=== PATIENT | female | born 2000 | race Caucasian/White ===

== ENCOUNTER 2019-06-01 16:29 | Emergency (ER) | payer OTHER ==
[2019-06-01 19:31] LABS: Urine Blood NEGATIVE (NEG); Urine Glucose NEGATIVE (NEG); Urine Protein NEGATIVE (NEG)
--- NOTE | 2019-06-01 19:56 | RAD REPORT ---
EXAM DESCRIPTION: CT - Stone Protocol - 06/01/2019 7:06 pm CLINICAL HISTORY: Abdominal pain. COMPARISON: None. TECHNIQUE: Computed axial tomography of the abdomen pelvis was obtained without oral or IV contrast. Lack of IV and oral contrast limits evaluation of solid organs, bowel, and vessels. Coronal reformat hung images were obtained and reviewed. All CT scans are performed using dose optimization technique as appropriate and may include automated exposure control or mA/KV adjustment according to patient size. FINDINGS: A renal calculus is not seen. An ureteral calculus is not noted. A bladder calculus is not present. The liver, spleen, pancreas and adrenals appear grossly normal There is no evidence of diverticulitis. The appendix appears normal Postsurgical changes involve the spine The appendix is borderline enlarged. IMPRESSION: Negative for a genitourinary calculus Borderline enlargement of the appendix. I suspect this is not significant. However if the patient robertson s have symptoms to suggest appendicitis then a CT scan with oral contrast and opacification of the te rminal ileum/cecum would be recommended
--- NOTE | 2019-06-01 21:18 | EDPHYS ---
Physician Documentation [facility] Name: Gabby Pérez Age: 18 yrs Sex: Female : 2000 Arrival Date: 06/01/2019 Time: 16:35 Bed Treatment Private MD: ED Physician Kang Telles HPI: 06/02 00:49 This 18 yrs old Female presents to ER via Ambulatory with complaints of Back kb Pain. 00:51 Pt reports she noticed swelling to tailbone area 4 days ago. Denies pain. Onset: The kb symptoms/episode began/occurred 4 day(s) ago. Severity of symptoms: At their worst the symptoms were mild moderate in the emergency department the symptoms are unchanged. The patient has not experienced similar symptoms in the past. The patient has not recently seen a physician. 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 - Social history:: Smoking status: Patient/guardian denies using tobacco. - Ebola Screening: : No symptoms or risks identified at this time. ROS: 06/02 00:49 Constitutional: Negative for fever, chills, and weight loss, ENT: Negative for injury, kb pain, and discharge, Neck: Negative for injury, pain, and swelling, Cardiovascular: Negative for chest pain, palpitations, and edema, Respiratory: Negative for shortness of breath, cough, wheezing, and pleuritic chest pain, Abdomen/GI: Negative for abdominal pain, nausea, vomiting, diarrhea, and constipation, : Negative for injury, bleeding, discharge, and swelling, MS/Extremity: Negative for injury and deformity, Skin: Negative for injury, rash, and discoloration, Neuro: Negative for headache, weakness, numbness, tingling, and seizure. Back: Positive for of the lumbar area, swelling. Exam: 00:49 Constitutional: This is a well developed, well nourished patient who is awake, alert, kb and in no acute distress. Head/Face: Normocephalic, atraumatic. Chest/axilla: Normal chest wall appearance and motion. Nontender with no deformity. No lesions are appreciated. Cardiovascular: Regular rate and rhythm with a normal S1 and S2. No gallops, murmurs, or rubs. Normal PMI, no JVD. No pulse deficits. Respiratory: Lungs have equal breath sounds bilaterally, clear to auscultation and percussion. No rales, rhonchi or wheezes noted. No increased work of breathing, no retractions or nasal flaring. Abdomen/GI: Soft, non-tender, with normal bowel sounds. No distension or tympany. No guarding or rebound. No evidence of tenderness throughout. Skin: Warm, dry with normal turgor. Normal color with no rashes, no lesions, and no evidence of cellulitis. MS/ Extremity: Pulses equal, no cyanosis. Neurovascular intact. Full, normal range of motion. Neuro: Awake and alert, GCS 15, oriented to person, place, time, and situation. Cranial nerves II-XII grossly intact. Motor strength 5/5 in all extremities. Sensory grossly intact. Cerebellar exam normal. Normal gait. 00:49 Back: pain, is absent, edema to coccyx. Vital Signs: 06/01 16:44 BP 118 / 74; Pulse 77; Resp 16; Temp 98.6; Pulse Ox 100% on R/A; Weight 54.43 kg; ss Height 5 ft. 2 in. (157.48 cm); Pain 0/10; 16:44 Body Mass Index 21.95 (54.43 kg, 157.48 cm) ss MDM: 18:34 Patient medically screened. kb 20:37 Data reviewed: vital signs, nurses notes. Data interpreted: Pulse oximetry: on room air kb is 100 %. Interpretation: normal. Counseling: I had a detailed discussion with the patient and/or guardian regarding: the historical points, exam findings, and any diagnostic results supporting the discharge/admit diagnosis, radiology results, the need for outpatient follow up, a family practitioner, to return to the emergency department if symptoms worsen or persist or if there are any questions or concerns that arise at home. 06/02 00:49 ED course: Pt has no abd pain, tenderness or complaints. kb 06/01 18:40 Order name: Urine Dipstick--Ancillary (enter results); Complete Time: 19:33 bd 06/01 18:40 Order name: Urine --Ancillary (enter results); Complete Time: 19:33 bd 06/01 18:40 Order name: Urine Dipstick-Ancillary (obtain specimen); Complete Time: 18:54 jl7 06/01 18:40 Order name: CT Stone Protocol; Complete Time: 20:00 jl7 Administered Medications: No medications were administered Disposition: 07:53 Co-signature as Attending Physician, Kang Telles MD I agree with the assessment and wa plan of care. Disposition: 06/01/19 21:17 Discharged to Home. Impression: localized swelling to coccyx area. - Condition is Stable. - Discharge Instructions: Edema, [id number]. - Medication Reconciliation Form, Thank You Letter, Antibiotic Education, Prescription Opioid Use form. - Follow up: Emergency Department; When: As needed; Reason: Worsening of condition. Follow up: Private Physician; When: 2 - 3 days; Reason: Recheck today's complaints, Continuance of care, Re-evaluation by your physician. Signatures: Dispatcher [employer] EDDarcie Hartley, PATRICIA-C METALWORKING SPECIALIST-CkEmiliana Osborne RN RN aj1 Marisol Fields RN RN Antolin Alvarez RN RN jl7 Kang Telles MD MD wa Corrections: (The following items were deleted from the chart) 06/01 21:26 21:17 06/01/2019 21:17 Discharged to Home. Impression: localized swelling to coccyx aj1 area. Condition is Stable. Forms are Medication Reconciliation Form, Thank You Letter, Antibiotic Education, Prescription Opioid Use. Follow up: Emergency Department; When: As needed; Reason: Worsening of condition. Follow up: Private Physician; When: 2 - 3 days; Reason: Recheck today's complaints, Continuance of care, Re-evaluation by your physician. kb
--- NOTE | 2019-06-01 21:18 | ER ---
Nurse's Notes [facility] Name: Gabby Pérez Age: 18 yrs Sex: Female : 2000 Arrival Date: 06/01/2019 Time: 16:35 Bed Treatment Private MD: Diagnosis: localized swelling to coccyx area Presentation: 06/01 16:42 Presenting complaint: Low back pain after running 4 days ago. Transition of care: hb patient was not received from another setting of care. Onset of symptoms was May 28, 2019. Risk Assessment: Do you want to hurt yourself or someone else? Patient reports no desire to harm self or others. Initial Sepsis Screen: Does the patient meet any 2 criteria? No. Patient's initial sepsis screen is negative. Does the patient have a suspected source of infection? No. Patient's initial sepsis screen is negative. Care prior to arrival: None. 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 - Social history:: Smoking status: Patient/guardian denies using tobacco. - Ebola Screening: : No symptoms or risks identified at this time. Screenin:30 Abuse screen: Denies threats or abuse. Denies injuries from another. Nutritional aj1 screening: No deficits noted. Tuberculosis screening: No symptoms or risk factors identified. 21:25 Fall Risk None identified. aj1 Assessment: 18:30 General: Appears in no apparent distress. comfortable, Behavior is calm, cooperative, aj1 appropriate for age. Pain: Complains of pain in low back area Pain currently is 3 out of 10 on a pain scale. Neuro: Level of Consciousness is awake, alert, obeys commands, Oriented to person, place, time, situation, Gait is steady. Cardiovascular: Patient's skin is warm and dry. Respiratory: Airway is patent Respiratory effort is even, unlabored, Respiratory pattern is regular, symmetrical. GI: No signs and/or symptoms were reported involving the gastrointestinal system. : Denies burning with urination, urinary frequency. EENT: No signs and/or symptoms were reported regarding the EENT system. Derm: No signs and/or symptoms reported regarding the dermatologic system. Skin is pink, warm \T\ dry. normal. Musculoskeletal: Circulation, motion, and sensation intact. 19:49 Reassessment: Patient appears in no apparent distress at this time. No changes from aj1 previously documented assessment. Patient and/or family updated on plan of care and expected duration. Pain level reassessed. Patient is alert, oriented x 3, equal unlabored respirations, skin warm/dry/pink. 20:30 Reassessment: Patient appears in no apparent distress at this time. No changes from aj1 previously documented assessment. Patient and/or family updated on plan of care and expected duration. Pain level reassessed. Patient is alert, oriented x 3, equal unlabored respirations, skin warm/dry/pink. Vital Signs: 16:44 BP 118 / 74; Pulse 77; Resp 16; Temp 98.6; Pulse Ox 100% on R/A; Weight 54.43 kg; ss Height 5 ft. 2 in. (157.48 cm); Pain 0/10; 16:44 Body Mass Index 21.95 (54.43 kg, 157.48 cm) ED Course: 16:35 Patient arrived in ED. mr 16:43 Triage completed. hb 16:44 Arm band placed on. hb 18:25 Emiliana Hidalgo, RN is Primary Nurse. aj1 18:30 Patient has correct armband on for positive identification. aj1 18:30 No provider procedures requiring assistance completed. aj1 18:31 D[facility] Gill [facility]-C [facility]. kb 18:31 Kang Telles MD is Attending Physician. kb 19:07 CT Stone Protocol In Process Unspecified. EDMS 21:25 Patient did not have IV access during this emergency room visit. aj1 Administered Medications: No medications were administered Outcome: 21:17 Discharge ordered by . kb 21:26 Discharged to home ambulatory. aj1 21:26 Condition: good 21:26 Discharge instructions given to no one, patient left prior to signing discharge paperwork 21:26 Patient left the ED. aj1 Signatures: Dispatcher [employer] EDMT Darcie Gill FNP-C MATHEMATICS INSTRUCTOR-Emiliana Ferrera, RN RN aj1 Cecy Moralez mr Ciara Tam RN RN ss Marisol Fields RN RN hb Corrections: (The following items were deleted from the chart) 17:31 16:44 BP 118 / 74; Pulse 16bpm; Resp 77bpm; Pulse Ox 100% RA; Temp 98.6F; 54.43 kg; ss Height 5 ft. 2 in.; BMI: 21.9; Pain 0/10; hb
== END 2019-06-01 21:26 | disposition home or self-care (01) ==
LOC: ER 16:29
DX: R22.9 Localized swelling, mass and lump, unspecified (principal)
CPT/HCPCS: 74176; 76377; 81003; 81025; 99283

== ENCOUNTER 2019-10-29 13:03 | Emergency (ER) | payer OTHER, SELFPAY ==
--- NOTE | 2019-10-29 13:43 | ER ---
Nurse's Notes [facility] Name: Gabby Pérez Age: 19 yrs Sex: Female : 2000 Arrival Date: 10/29/2019 Time: 13:06 Bed 15 Private MD: Diagnosis: Low back pain Presentation: 10/29 13:06 Presenting complaint: Patient states: "There's a bump on my back and it makes me not be sv able to walk." c/o discoloration. Transition of care: patient was not received from another setting of care. Onset of symptoms was October 29, 2019. Risk Assessment: Do you want to hurt yourself or someone else? Patient reports no desire to harm self or others. Care prior to arrival: None. 13:06 Method Of Arrival: Ambulatory sv 13:06 Acuity: JENNIFER 3 sv 17:32 Initial Sepsis Screen: Does the patient meet any 2 criteria? No. Patient's initial sepsis screen is negative. Does the patient have a suspected source of infection? No. Patient's initial sepsis screen is negative. Triage Assessment: 13:20 General: Appears in no apparent distress. comfortable, Behavior is calm, cooperative, ch appropriate for age. 13:20 Musculoskeletal: Circulation, motion, and sensation intact. ch Historical: - Allergies: 13:08 No Known Allergies; sv - PMHx: 13:08 None; sv - PSHx: 13:08 Back; Spinal fusion; sv - Immunization history:: Adult Immunizations up to date. - Social history:: Smoking status: Patient/guardian denies using tobacco. Screenin:30 Abuse screen: Denies threats or abuse. Denies injuries from another. Nutritional screening: No deficits noted. Tuberculosis screening: No symptoms or risk factors identified. Fall Risk None identified. Assessment: 13:30 Reassessment: Patient appears in no apparent distress at this time. Patient and/or ch family updated on plan of care and expected duration. Pain level reassessed. Patient is alert, oriented x 3, equal unlabored respirations, skin warm/dry/pink. General: Appears in no apparent distress. comfortable. Pain:. Neuro: Level of Consciousness is awake, alert, obeys commands, Oriented to person, place, time, situation. Cardiovascular: No deficits noted. Respiratory: No deficits noted. GI: No signs and/or symptoms were reported involving the gastrointestinal system. : No signs and/or symptoms were reported regarding the genitourinary system. Derm: Skin is pink, warm \\T\\ dry. 14:07 Reassessment: Patient appears in no apparent distress at this time. Patient and/or ch family updated on plan of care and expected duration. Pain level reassessed. Patient is alert, oriented x 3, equal unlabored respirations, skin warm/dry/pink. Patient states feeling better. Patient states symptoms have improved. Vital Signs: 13:08 BP 128 / 72; Pulse 88; Resp 16; Temp 98.1; Pulse Ox 100% ; Weight 56.7 kg; Height 5 ft. sv 2 in. (157.48 cm); Pain 6/10; 14:07 BP 115 / 67; Pulse 74; Resp 16; Temp 98.1; Pulse Ox 99% on R/A; Pain 3/10; ch 13:08 Body Mass Index 22.86 (56.70 kg, 157.48 cm) sv ED Course: 13:06 Patient arrived in ED. as 13:07 Triage completed. 13:11 Hong Caal PA is PHCP. [facility] 13:11 Harshad Tran MD is Attending Physician. [facility] 13:20 Arm band placed on left wrist. Patient placed in an exam room, on a stretcher, on pulse oximetry. 13:29 Val Burch, PHILOMENA is Primary Nurse. 13:30 No apparent distress. Resting quietly. 13:30 Patient has correct armband on for positive identification. Bed in low position. Call light in reach. 13:30 No provider procedures requiring assistance completed. 13:40 Patient did not have IV access during this emergency room visit. 13:42 Louie Wharton MD is Referral Physician. [facility] 13:43 El Horne MD is Referral Physician. [facility] 13:43 Toño Pichardo MD is Referral Physician. [facility] Administered Medications: No medications were administered Outcome: 13:43 Discharge ordered by . [facility] 14:08 Discharged to home ambulatory, with family. 14:08 Condition: stable 14:08 Discharge instructions given to patient, family, Instructed on discharge instructions, follow up and referral plans. medication usage, Demonstrated understanding of instructions, follow-up care, medications. 14:09 Patient left the ED. Signatures: Val Burch RN RN Elmira Ardon RN RN sv Hong Caal PA PA jmm Martinez, Amelia as Corrections: (The following items were deleted from the chart) 13:09 13:08 Pulse 88bpm; Resp 16bpm; Pulse Ox 100%; Temp 98.1F; 56.7 kg; Height 5 ft. 2 in.; sv BMI: 22.8; Pain 6/10; sv 14:09 13:45 Inserted saline lock: 20 gauge in right antecubital area, using aseptic ch technique. Blood collected. 14: 14:08 IV discontinued, intact, bleeding controlled, No redness/swelling at site. Pressure dressing applied, ch
--- NOTE | 2019-10-29 13:43 | EDPHYS ---
Physician Documentation [facility] Name: Gabby Pérez Age: 19 yrs Sex: Female : 2000 Arrival Date: 10/29/2019 Time: 13:06 Bed 15 Private MD: ED Physician Harshad Tran HPI: 10/29 13:19 This 19 yrs old Female presents to ER via Ambulatory with complaints of Back jmm Pain. 13:19 The patient presents with pain that is chronic. Onset: The symptoms/episode jmm began/occurred gradually, 4 month(s) ago. The pain does not radiate. Associated signs and symptoms: Pertinent negatives: dysuria, fever, hematuria, incontinence, numbness, urinary retention, weakness. Modifying factors: The patient symptoms are alleviated by nothing, the patient symptoms are aggravated by any movement. 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 Patient had developed swelling to her lower back and was evaluated in the ED with a negative CT of the spine. Patient states pain had resolved and would given her pain intermittently throughout the past 4 months. Patient states pain has intensified over the past 2 days. Patient states she developed hip pain last night. Denies fever, chills, weakness, bowel or bladder problems. Patient has remote history of spinal surgery. . Historical: - Allergies: 13:08 No Known Allergies; sv - PMHx: 13:08 None; sv - PSHx: 13:08 Back; Spinal fusion; sv - Immunization history:: Adult Immunizations up to date. - Social history:: Smoking status: Patient/guardian denies using tobacco. ROS: 13:19 Constitutional: Negative for fever, chills, and weight loss, Cardiovascular: Negative jmm for chest pain, palpitations, and edema, Respiratory: Negative for shortness of breath, cough, wheezing, and pleuritic chest pain. 13:19 Back: Positive for pain with movement. 13:19 All other systems are negative. Exam: 13:19 Constitutional: This is a well developed, well nourished patient who is awake, alert, jmm and in no acute distress. Head/Face: atraumatic. Eyes: EOMI, no conjunctival erythema appreciated ENT: Moist Mucus Membranes Neck: Trachea midline, Supple Chest/axilla: Normal chest wall appearance and motion. Cardiovascular: Regular rate and rhythm. No edema appreciated Respiratory: Normal respirations, no respiratory distress appreciated Abdomen/GI: Non distended, soft 13:19 Skin: General appearance color normal 13:19 Back: no mildline tenderness is appreciated, no erythema or mass felt, mild right lower lumbar/sacral pain. FROM appreciated. Extensor hallucis longus intact. 13:19 Musculoskeletal/extremity: ROM: intact in all extremities. 13:19 Neuro: Orientation: is normal, Mentation: is normal, Memory: is normal. 13:19 Psych: Behavior/mood is pleasant, cooperative. Vital Signs: 13:08 BP 128 / 72; Pulse 88; Resp 16; Temp 98.1; Pulse Ox 100% ; Weight 56.7 kg; Height 5 ft. sv 2 in. (157.48 cm); Pain 6/10; 14:07 BP 115 / 67; Pulse 74; Resp 16; Temp 98.1; Pulse Ox 99% on R/A; Pain 3/10; ch 13:08 Body Mass Index 22.86 (56.70 kg, 157.48 cm) sv MDM: 13:19 Patient medically screened. [facility] 13:42 Data reviewed: vital signs, nurses notes. Counseling: I had a detailed discussion with juice the patient and/or guardian regarding: the historical points, exam findings, and any diagnostic results supporting the discharge/admit diagnosis, the need for outpatient follow up, to return to the emergency department if symptoms worsen or persist or if there are any questions or concerns that arise at home. Administered Medications: No medications were administered Disposition: 16:31 Co-signature as Attending Physician, Harshad Tran MD I agree with the assessment and kdr plan of care. Disposition: 10/29/19 13:43 Discharged to Home. Impression: Low back pain. - Condition is Stable. - Discharge Instructions: Back Pain, Adult. - Work release form, Medication Reconciliation Form, Thank You Letter, Antibiotic Education, Prescription Opioid Use form. - Follow up: Louie Wharton MD; When: 2 - 3 days; Reason: Recheck today's complaints, Continuance of care, Re-evaluation by your physician. Follow up: El Horne MD; When: 2 - 3 days; Reason: Recheck today's complaints, Continuance of care, Re-evaluation by your physician. Follow up: Toño Pichardo MD; When: 2 - 3 days; Reason: Recheck today's complaints, Continuance of care, Re-evaluation by your physician. Signatures: Val Burch, RN Elmira Earl ch, RN RN sv Rittger, Kevin, MD MD [facility] Hong Caal PA PA jmm Corrections: (The following items were deleted from the chart) 14:09 13:43 10/29/2019 13:43 Discharged to Home. Impression: Low back pain. Condition is ch Stable. Forms are Medication Reconciliation Form, Thank You Letter, Antibiotic Education, Prescription Opioid Use. Follow up: Louie Wharton; When: 2 - 3 days; Reason: Recheck today's complaints, Continuance of care, Re-evaluation by your physician. Follow up: El Horne; When: 2 - 3 days; Reason: Recheck today's complaints, Continuance of care, Re-evaluation by your physician. Follow up: Toño Pichardo; When: 2 - 3 days; Reason: Recheck today's complaints, Continuance of care, Re-evaluation by your physician. juice
[2019-10-29 14:16] VITALS: TEMP 98.1
[2019-10-29 14:17] VITALS: BP 115/67; O2SAT 99
== END 2019-10-29 14:09 | disposition home or self-care (01) ==
LOC: ER 13:03
DX: M54.5 Low back pain (principal)
CPT/HCPCS: 99283